=== PATIENT | female | born 1940 | race Caucasian/White ===

== ENCOUNTER → 2016-09-12 | Outpatient (CLI) | payer MEDICARE, BC | LOC: COL.VAS 09-06 10:45 | DX: I34.0 Nonrheumatic mitral (valve) insufficiency (principal); R94.39 Abnormal result of other cardiovascular function study; R01.1 Cardiac murmur, unspecified ==

== ENCOUNTER → 2016-11-03 | Outpatient (CLI) | payer MEDICARE, BC | LOC: COL.RAD 14:13 | DX: D44.0 Neoplasm of uncertain behavior of thyroid gland (principal); R94.6 Abnormal results of thyroid function studies ==

== ENCOUNTER → 2016-11-11 | Outpatient (CLI) | payer MEDICARE, BC | LOC: COL.RAD 11:44 | DX: R31.1 Benign essential microscopic hematuria (principal); D25.9 Leiomyoma of uterus, unspecified; K57.30 Diverticulosis of large intestine without perforation or abscess without bleeding | CPT/HCPCS: Q9967 ==

== ENCOUNTER 2017-02-01 11:15 | Outpatient (RCR) | payer MEDICARE, BC | END 2017-02-02 09:30 | disposition still patient (30) | LOC: MKS.ESL.PT 11:15 | DX: Z47.89 Encounter for other orthopedic aftercare (principal); M25.871 Other specified joint disorders, right ankle and foot | CPT/HCPCS: G8978-GP; G8979-GP; G8980-GP ==

== ENCOUNTER → 2020-05-26 | Outpatient (CLI) | payer MEDICARE, BC | LOC: COL.VAS 10:37 | DX: I08.0 Rheumatic disorders of both mitral and aortic valves (principal) ==

== ENCOUNTER → 2021-09-02 | Outpatient (CLI) | payer MEDICARE, BC | LOC: COL.VAS 12:43 | DX: I34.0 Nonrheumatic mitral (valve) insufficiency (principal) ==

== ENCOUNTER → 2023-10-17 | Outpatient (CLI) | payer MEDICARE, BC | LOC: COL.VAS 08:02 | DX: I51.7 Cardiomegaly (principal); I35.0 Nonrheumatic aortic (valve) stenosis; I27.20 Pulmonary hypertension, unspecified ==